=== PATIENT | female | born 1975 | race Caucasian/White ===

== ENCOUNTER 2021-09-02 13:12 | Inpatient (IN) | payer OTHER ==
[2021-09-02] MEDS ORDERED: ACETAMINOPHEN 325 MG TABLET (FP) PO PRN (14:08)
[2021-09-02] MEDS ORDERED: MENTHOL/PHENOL 1 EACH UD MM PRN (14:08)
[2021-09-02] MEDS ORDERED: MAGNESIUM HYDROX 2400MG/30ML ORAL SUSPENSION 30 ML CUP PO PRN (14:08)
[2021-09-02] MEDS ORDERED: MAGNESIUM CITRATE 300 ML BOTTLE PO PRN (14:08)
[2021-09-02] MEDS ORDERED: IBUPROFEN 400 MG TABLET (FP) PO PRN (14:08)
[2021-09-02] MEDS ORDERED: NICOTINE 10 MG CARTRIDGE (INHALER) IH PRN (14:08)
[2021-09-02] MEDS ORDERED: diazePAM 5 MG TABLET PO PRN (14:08)
[2021-09-02] MEDS ORDERED: ONDANSETRON *ODT* 4 MG TABLET SL PRN (14:08)
[2021-09-02] MEDS ORDERED: MAG HYDROX/AL HYDROX/SIMETH 30 ML UNIT-DOSE CUP PO PRN (14:08)
[2021-09-02] MEDS ORDERED: BISMUTH SUBSALICYLATE 262 MG/15 ML BTL PO PRN (14:08)
[2021-09-02 14:57] VITALS: BMI 18.6
[2021-09-02] MEDS: diazePAM 5 MG TABLET PO SCH ×2 (17:42→22:17)
[2021-09-02] MEDS: hydrOXYzine PAMOATE 25 MG CAPSULE (FP) PO SCH ×3 (17:42→22:18)
[2021-09-02] MEDS ORDERED: MELATONIN 5 MG TABLETS PO SCH (22:00)
[2021-09-02] MEDS: THIAMINE HCL 100 MG TABLET (FP) PO SCH (22:16)
[2021-09-02] MEDS: ACETAMINOPHEN 325 MG TABLET (FP) PO PRN (22:18)
[2021-09-03] MEDS: diazePAM 5 MG TABLET PO SCH ×4 (05:39→22:18)
[2021-09-03] MEDS: hydrOXYzine PAMOATE 25 MG CAPSULE (FP) PO SCH ×2 (05:40→10:30)
[2021-09-03] MEDS: PRENATAL VITAMINS W/ FOLIC ACID TABLET (FP) PO SCH (10:30)
[2021-09-03] MEDS: METHOCARBAMOL 500 MG TABLET PO PRN (10:30)
[2021-09-03] MEDS: ACETAMINOPHEN 325 MG TABLET (FP) PO PRN ×2 (10:31→17:48)
[2021-09-03] MEDS: FLUOCINONIDE 0.05% TOPICAL SOLUTION (60 ML BOTTLE) TP SCH (12:22)
[2021-09-03] MEDS ORDERED: QUEtiapine FUMARATE 200 MG TABLET PO SCH (22:00)
[2021-09-03] MEDS: THIAMINE HCL 100 MG TABLET (FP) PO SCH (22:18)
[2021-09-04] MEDS: diazePAM 5 MG TABLET PO SCH ×2 (05:27→16:17)
[2021-09-04] MEDS: ACETAMINOPHEN 325 MG TABLET (FP) PO PRN (05:28)
[2021-09-04 09:56] VITALS: TEMP 97.8
[2021-09-04] MEDS: METHOCARBAMOL 500 MG TABLET PO PRN (10:57)
[2021-09-04] MEDS: PRENATAL VITAMINS W/ FOLIC ACID TABLET (FP) PO SCH (10:57)
[2021-09-04] MEDS: FLUOCINONIDE 0.05% TOPICAL SOLUTION (60 ML BOTTLE) TP SCH (12:51)
[2021-09-04 19:04] VITALS: BP 140/82; PULSE 87
[2021-09-05] MEDS ORDERED: diazePAM 5 MG TABLET PO SCH (06:00)
[2021-09-06] MEDS ORDERED: diazePAM 5 MG TABLET PO ONE (06:00)
== END 2021-09-04 18:05 | disposition left against medical advice (07) | DRG 770 ==
LOC: YASAS 13:12 → Y6N 14:49
PROVIDERS: ADMIT Allergy & Immunology; ATTEND Allergy & Immunology
PROC: HZ2ZZZZ Detoxification Services for Substance Abuse Treatment (ICD-10-PCS; principal; 2021-09-02)
DX: F10.230 Alcohol dependence with withdrawal, uncomplicated (principal); F10.24 Alcohol dependence with alcohol-induced mood disorder; F10.282 Alcohol dependence with alcohol-induced sleep disorder; F10.280 Alcohol dependence with alcohol-induced anxiety disorder; F12.20 Cannabis dependence, uncomplicated; F14.10 Cocaine abuse, uncomplicated; F17.210 Nicotine dependence, cigarettes, uncomplicated; F31.9 Bipolar disorder, unspecified; F25.9 Schizoaffective disorder, unspecified; Z86.69 Personal history of other diseases of the nervous system and sense organs; Z56.0 Unemployment, unspecified; Z59.00 Homelessness unspecified
CPT/HCPCS: C9803; U0003; U0005

== ENCOUNTER 2021-11-25 16:24 | Inpatient (IN) | payer OTHER ==
[2021-11-25] MEDS ORDERED: MAG HYDROX/AL HYDROX/SIMETH 30 ML UNIT-DOSE CUP PO PRN (18:04)
[2021-11-25] MEDS ORDERED: MAGNESIUM CITRATE 300 ML BOTTLE PO PRN (18:04)
[2021-11-25] MEDS ORDERED: MELATONIN 5 MG TABLETS PO PRN (18:04)
[2021-11-25] MEDS ORDERED: BISMUTH SUBSALICYLATE 524 MG/30 ML PO PRN (18:04)
[2021-11-25] MEDS ORDERED: DICYCLOMINE HCL 10 MG CAPSULE PO PRN (18:04)
[2021-11-25] MEDS ORDERED: LOPERAMIDE HCL 2 MG CAPSULE PO PRN (18:04)
[2021-11-25] MEDS ORDERED: MENTHOL/PHENOL 1 EACH UD MM PRN (18:04)
[2021-11-25] MEDS ORDERED: ONDANSETRON *ODT* 4 MG TABLET SL PRN (18:04)
[2021-11-25] MEDS ORDERED: MAGNESIUM HYDROX 2400MG/30ML ORAL SUSPENSION 30 ML CUP PO PRN (18:04)
[2021-11-25] MEDS ORDERED: IBUPROFEN 400 MG TABLET (FP) PO PRN (18:04)
[2021-11-25] MEDS ORDERED: ACETAMINOPHEN 325 MG TABLET (FP) PO PRN (18:04)
[2021-11-25] MEDS ORDERED: chlordiazePOXIDE HCL 25 MG CAPSULE PO PRN (18:06)
[2021-11-25] MEDS ORDERED: chlordiazePOXIDE HCL 25 MG CAPSULE PO ONE (18:06)
[2021-11-25 19:23] VITALS: BMI 19.5
[2021-11-26] MEDS ORDERED: chlordiazePOXIDE HCL 25 MG CAPSULE ONE ×3 (00:23→11:30)
[2021-11-26] MEDS: chlordiazePOXIDE HCL 25 MG CAPSULE PO SCH ×5 (00:28→23:20)
[2021-11-26] MEDS ORDERED: ACETAMINOPHEN 325 MG TABLET (FP) ONE ×2 (00:29→06:35)
[2021-11-26] MEDS: THIAMINE HCL 100 MG TABLET (FP) PO SCH ×2 (00:42→23:20)
[2021-11-26] MEDS: ACETAMINOPHEN 325 MG TABLET (FP) PO PRN ×2 (06:37→23:23)
[2021-11-26 10:26] LABS: HEMATOCRIT 36.9 % (32.4-45.2); HEMOGLOBIN 12.5 GM/dL (10.7-15.3); MCH 34.5 pg (25.7-33.7); MCHC 33.9 g/dl (32.0-36.0); MEAN CELL VOLUME 101.6 fl (80-96); MEAN PLT VOLUME 7.8 fl (7.5-11.1); PLATELET COUNT 247 10^3/uL (134-434); RBC 3.63 M/mm3 (3.60-5.2); RDW 14.8 % (11.6-15.6); WHITE BLOOD COUNT 4.1 K/mm3 (4.0-10.0)
[2021-11-26 10:39] LABS: CALCIUM 9.5 mg/dL (8.5-10.1)
[2021-11-26 10:40] LABS: ALBUMIN 3.5 g/dl (3.4-5.0)
[2021-11-26 10:42] LABS: CREATININE 0.7 mg/dL (0.55-1.3)
[2021-11-26 10:44] LABS: BILIRUBIN,TOTAL 1.1 mg/dL (0.2-1); TOT PROT 7.8 g/dl (6.4-8.2)
[2021-11-26 11:18] LABS: HIV INTERPRETATION NEGATIVE (NEGATIVE)
[2021-11-26] MEDS: PRENATAL VITAMINS W/ FOLIC ACID TABLET (FP) PO SCH (11:39)
[2021-11-26 12:09] LABS: SARS-CoV-2 NAA Not Detected (Not Detected)
[2021-11-26] MEDS: METHOCARBAMOL 500 MG TABLET PO PRN (18:13)
[2021-11-26] MEDS: QUEtiapine FUMARATE 100 MG TABLET (FP) PO SCH (23:19)
[2021-11-27] MEDS: chlordiazePOXIDE HCL 25 MG CAPSULE PO SCH ×4 (05:54→22:44)
[2021-11-27] MEDS: ACETAMINOPHEN 325 MG TABLET (FP) PO PRN ×2 (05:55→22:46)
[2021-11-27] MEDS: METHOCARBAMOL 500 MG TABLET PO PRN ×2 (10:02→18:27)
[2021-11-27] MEDS: PRENATAL VITAMINS W/ FOLIC ACID TABLET (FP) PO SCH (10:02)
[2021-11-27] MEDS: THIAMINE HCL 100 MG TABLET (FP) PO SCH (22:43)
[2021-11-27] MEDS: QUEtiapine FUMARATE 100 MG TABLET (FP) PO SCH (22:43)
[2021-11-28] MEDS ORDERED: chlordiazePOXIDE HCL 10 MG CAPSULE PO PRN
[2021-11-28] MEDS: chlordiazePOXIDE HCL 10 MG CAPSULE PO SCH ×2 (06:57→10:31)
[2021-11-28] MEDS: ACETAMINOPHEN 325 MG TABLET (FP) PO PRN (06:59)
[2021-11-28] MEDS: METHOCARBAMOL 500 MG TABLET PO PRN (06:59)
[2021-11-28] MEDS: PRENATAL VITAMINS W/ FOLIC ACID TABLET (FP) PO SCH (10:31)
[2021-11-28 11:40] LABS: BASO % 0.5 % (0-2.0); EOS % 4.8 % (0-4.5); HEMATOCRIT 34.7 % (32.4-45.2); HEMOGLOBIN 11.9 GM/dL (10.7-15.3); LYMPH % 21.6 % (8-40); MCH 35.3 pg (25.7-33.7); MCHC 34.3 g/dl (32.0-36.0); MEAN CELL VOLUME 102.9 fl (80-96); MEAN PLT VOLUME 8.1 fl (7.5-11.1); MONO % 12.8 % (3.8-10.2); NEUT % 60.3 % (42.8-82.8); PLATELET COUNT 216 10^3/uL (134-434); RBC 3.37 M/mm3 (3.60-5.2); RDW 14.5 % (11.6-15.6); WHITE BLOOD COUNT 5.5 K/mm3 (4.0-10.0)
[2021-11-28 11:59] LABS: CALCIUM 8.9 mg/dL (8.5-10.1)
[2021-11-28 12:04] LABS: CREATININE 0.7 mg/dL (0.55-1.3)
[2021-11-28 14:15] VITALS: BP 133/92; PULSE 73; TEMP 98.2
[2021-11-29] MEDS ORDERED: chlordiazePOXIDE HCL 10 MG CAPSULE PO SCH (05:00)
[2021-11-30] MEDS ORDERED: chlordiazePOXIDE HCL 10 MG CAPSULE PO ONE (05:00)
== END 2021-11-28 15:33 | disposition left against medical advice (07) | DRG 770 ==
LOC: YASAS 16:24 → Y6N 11-26 13:19
PROVIDERS: ADMIT Allergy & Immunology; ATTEND Allergy & Immunology
PROC: HZ2ZZZZ Detoxification Services for Substance Abuse Treatment (ICD-10-PCS; principal; 2021-11-26)
DX: F10.230 Alcohol dependence with withdrawal, uncomplicated (principal); F13.20 Sedative, hypnotic or anxiolytic dependence, uncomplicated; F14.10 Cocaine abuse, uncomplicated; F12.20 Cannabis dependence, uncomplicated; F17.210 Nicotine dependence, cigarettes, uncomplicated; F20.9 Schizophrenia, unspecified; F10.282 Alcohol dependence with alcohol-induced sleep disorder; F10.24 Alcohol dependence with alcohol-induced mood disorder; F31.9 Bipolar disorder, unspecified; F41.9 Anxiety disorder, unspecified; D64.9 Anemia, unspecified; Z88.8 Allergy status to other drugs, medicaments and biological substances
CPT/HCPCS: 36415; 80048; 80053; 85025; 85027; 86780; 87389; 87811; C9803-CS; U0003; U0005